=== PATIENT | female | born 1970 | race Caucasian/White ===

== ENCOUNTER 2016-05-29 18:40 | Outpatient (CLI) | payer OTHER ==
[~2016-05-29] VITALS: Ht 157.5 cm; Wt 71.4 kg
[2016-05-29 19:15] VITALS: BP 129/75; PULSE 85; TEMP 97.7
[2016-05-29 19:45] VITALS: BP 129/75; PULSE 85; TEMP 97.7
[2016-05-29] MEDS ORDERED: ASPIRIN 81M81 MG/TA2 PO (20:02)
[2016-05-29] MEDS ORDERED: PRENATAL (20:03)
[2016-05-29 21:30] VITALS: BP 111/67; PULSE 90
== END 2016-05-29 23:30 | disposition home or self-care (01) ==
LOC: LDRO 18:40
DX: O26.892 Other specified pregnancy related conditions, second trimester (principal); Z3A.25 25 weeks gestation of pregnancy; V49.9XXA Car occupant (driver) (passenger) injured in unspecified traffic accident, initial encounter

== ENCOUNTER 2016-06-15 09:03 | Emergency (ER) | payer OTHER ==
[~2016-06-15] VITALS: Ht 157.5 cm; Wt 70.5 kg
[~2016-06-15 09:03] MED LIST: ASPIRIN 81M81 MG/TA2 PO; PRENATAL
[2016-06-15 09:05] VITALS: BP 138/83
[2016-06-15 10:11] LABS: BASO % 0.1 % (0.0-2.0); EOS # 0.1 (0.0-0.7); EOS % 1.1 % (0-4.0); GRAN # 5.4 (1.4-6.5); GRAN % 71.7 % (42.2-75.2); HEMATOCRIT 36.3 % (37.0-47.0); HEMOGLOBIN 12.3 g/dl (12.5-16.0); LYMPH # 1.5 (1.2-3.4); LYMPH % 20.3 % (20.0-51.0); MEAN CELL VOLUME 93 fl (80.0-100.0); MEAN CORPUSCULAR HEMOGLOBIN 32 pg (27.0-31.0); MEAN CORPUSCULAR HGB CONC 34 g/dl (33.0-37.0); MEAN PLATELET VOLUME 10.8 fl (7.4-10.4); MONO # 0.5 (0.1-0.6); MONO % 6.5 % (1.7-9.3); PLATELET COUNT 204 K/mm3 (130-400); RED BLOOD COUNT 3.89 M/mm3 (4.10-5.30); REDCELL DISTRIBUTION WIDTH-CV 13.2 % (11.5-14.5); WHITE BLOOD COUNT 7.5 K/mm3 (4.8-10.8)
[2016-06-15 10:22] LABS: ADJUSTED CALCIUM 8.7 mg/dL (8.4-10.2); ALBUMIN 3.4 gm/dL (3.5-5.0); BILIRUBIN,TOTAL 0.7 mg/dL (0.0-1.0); CALCIUM 8.2 mg/dL (8.4-10.2); CREATININE, serum 0.47 mg/dL (0.52-1.25); POTASSIUM 3.3 mmol/L (3.4-5.0); TOTAL PROTEIN 6.7 gm/dL (6.4-8.2)
[2016-06-15 10:42] LABS: PH 6 (5-8); URINE APPEARANCE Clear; URINE BACTERIA None Seen /hpf; URINE BILIRUBIN Negative (NEGATIVE); URINE BLOOD Negative (NEGATIVE); URINE COLOR Yellow; URINE GLUCOSE Negative (NEGATIVE); URINE KETONE 2+ (NEGATIVE); URINE RBC 0-2 /hpf; URINE WBC 0-2 /hpf
[2016-06-15] MEDS ORDERED: PROMETHAZINE12.5 M5 PO (11:32)
[2016-06-15 12:27] VITALS: PULSE 88; TEMP 98.8
== END 2016-06-15 12:25 | disposition home or self-care (01) ==
LOC: COL.ER 09:03
PROVIDERS: Physician Assistant
DX: O99.89 Other specified diseases and conditions complicating pregnancy, childbirth and the puerperium (principal); R11.2 Nausea with vomiting, unspecified; Z3A.28 28 weeks gestation of pregnancy
CPT/HCPCS: J2550; J7030

== ENCOUNTER 2016-08-23 22:02 | Inpatient (IN) | payer OTHER ==
[~2016-08-23] VITALS: Ht 157.5 cm; Wt 75.5 kg
[~2016-08-23 22:02] MED LIST changes: +PROMETHAZINE12.5 M5 PO
[2016-08-23 22:18] VITALS: BP 143/87; PULSE 99
[2016-08-23] MEDS ORDERED: TUMS500 MG PO (22:28)
[2016-08-23 23:16] LABS: BASO % 0.3 % (0.0-2.0); EOS # 0.3 (0.0-0.7); GRAN # 7.7 (1.4-6.5); GRAN % 71.3 % (42.2-75.2); LYMPH # 1.9 (1.2-3.4); LYMPH % 17.6 % (20.0-51.0); MEAN CELL VOLUME 91 fl (80.0-100.0); MEAN CORPUSCULAR HGB CONC 34 g/dl (33.0-37.0); MEAN PLATELET VOLUME 11.4 fl (7.4-10.4); MONO # 0.8 (0.1-0.6); MONO % 7.5 % (1.7-9.3); PLATELET COUNT 170 K/mm3 (130-400); RED BLOOD COUNT 3.65 M/mm3 (4.10-5.30); REDCELL DISTRIBUTION WIDTH-CV 13.4 % (11.5-14.5); WHITE BLOOD COUNT 10.9 K/mm3 (4.8-10.8)
[2016-08-23 23:17] LABS: HEMATOCRIT 33.3 % (37.0-47.0); HEMOGLOBIN 11.3 g/dl (12.5-16.0); MEAN CORPUSCULAR HEMOGLOBIN 31 pg (27.0-31.0)
[2016-08-23 23:25] LABS: PH 6 (5-8); SQUAMOUS EPITHELIAL 0-2 /hpf; URINE APPEARANCE Clear; URINE BACTERIA None Seen /hpf; URINE BILIRUBIN Negative (NEGATIVE); URINE BLOOD 1+ (NEGATIVE); URINE COLOR Yellow; URINE GLUCOSE Negative (NEGATIVE); URINE KETONE Negative (NEGATIVE); URINE RBC 0-2 /hpf; URINE UROBILINOGEN Negative (NEGATIVE); URINE WBC 0-2 /hpf
[2016-08-23 23:28] LABS: ADJUSTED CALCIUM 9.1 mg/dL (8.4-10.2); ALBUMIN 3.2 gm/dL (3.5-5.0); BILIRUBIN,TOTAL 0.5 mg/dL (0.0-1.0); CALCIUM 8.5 mg/dL (8.4-10.2); CREATININE, serum 0.57 mg/dL (0.52-1.25); POTASSIUM 3.4 mmol/L (3.4-5.0); TOTAL PROTEIN 6.6 gm/dL (6.4-8.2)
[2016-08-23 23:30] VITALS: BP 130/86; PULSE 105
[2016-08-24] VITALS (47 sets, daily range): BP systolic 86–138; BP diastolic 49–91; PULSE 80–127; TEMP 97.3–97.8
[2016-08-25 00:46] VITALS: BP 128/78; PULSE 76; TEMP 98.2
[2016-08-25 07:00] VITALS: BP 128/72; PULSE 78; TEMP 98.4
[2016-08-25 16:30] VITALS: BP 117/68; PULSE 79; TEMP 97.8
[2016-08-25 21:00] VITALS: BP 125/70; PULSE 87; TEMP 97.3
[2016-08-26 08:55] VITALS: BP 127/80; PULSE 75; TEMP 97
[2016-08-26] MEDS ORDERED: IBU800 M1 PO (09:12)
[2016-08-26] MEDS ORDERED: PERCOCET 325 MG1 TA2 PO (09:12)
[2016-08-26 16:25] VITALS: BP 132/76; PULSE 99; TEMP 97.5
== END 2016-08-26 16:45 | disposition home or self-care (01) | DRG 774 ==
LOC: LDRO 22:02 → OB 22:41 → LDR 22:41 → OB 08-25 03:55
PROVIDERS: Obstetrics & Gynecology
PROC: 10D07Z6 Extraction of Products of Conception, Vacuum, Via Natural or Artificial Opening (ICD-10-PCS; principal; 2016-08-24)
PROC: 0HQ9XZZ Repair Perineum Skin, External Approach (ICD-10-PCS; 2016-08-24)
DX: O42.02 Full-term premature rupture of membranes, onset of labor within 24 hours of rupture (principal); O10.913 Unspecified pre-existing hypertension complicating pregnancy, third trimester; O69.81X0 Labor and delivery complicated by cord around neck, without compression, not applicable or unspecified; O99.824 Streptococcus B carrier state complicating childbirth; O70.0 First degree perineal laceration during delivery; O09.523 Supervision of elderly multigravida, third trimester; Z3A.38 38 weeks gestation of pregnancy; Z37.0 Single live birth
CPT/HCPCS: J2540; J2590; J7120

== ENCOUNTER → 2018-03-24 | Outpatient (CLI) | payer OTHER ==
[~2018-03-24] MED LIST changes: +IBU800 M1 PO; +PERCOCET 325 MG1 TA2 PO; +TUMS500 MG PO
== END ==
LOC: MC.RAD 13:00
DX: Z12.31 Encounter for screening mammogram for malignant neoplasm of breast (principal)